=== PATIENT | female | born 1965 | race Caucasian/White ===

== ENCOUNTER 2023-03-15 08:13 | Day surgery (SDC) | payer OTHER ==
[~2023-03-15] VITALS: Ht 162.6 cm; Wt 90.7 kg
[2023-03-15] MEDS ORDERED: OZEMPIC2 MG SC (08:25)
[2023-03-15] MEDS ORDERED: ATORVASTATIN CA40 MG PO (08:26)
[2023-03-15] MEDS ORDERED: AMBIEN10 MG PO (08:27)
[2023-03-15] MEDS ORDERED: COZAAR25 MG PO (08:27)
[2023-03-15] MEDS ORDERED: LYRICA100 MG PO (08:29)
[2023-03-15] MEDS ORDERED: TIZANIDINE2 MG PO (09:12)
[2023-03-15 09:54] VITALS: BP 116/79
== END 2023-03-15 09:40 | disposition home or self-care (01) ==
LOC: ORM 08:13
PROVIDERS: ATTEND Student in an Organized Health Care Education/Training Program
DX: M54.9 Dorsalgia, unspecified (principal); G89.4 Chronic pain syndrome; M62.838 Other muscle spasm

== ENCOUNTER 2023-10-04 08:23 | Day surgery (SDC) | payer MEDICAID ==
[~2023-10-04] VITALS: Ht 162.6 cm; Wt 98.0 kg
[~2023-10-04 08:23] MED LIST: AMBIEN10 MG PO; ATORVASTATIN CA40 MG PO; COZAAR25 MG PO; LYRICA100 MG PO; METFORMIN500 M2 PO; OZEMPIC2 MG SC; TIZANIDINE2 MG PO
[2023-10-04] MEDS ORDERED: SODIUM CHLORIDE 0.9% 10 ML SYR ONE ×2 (08:26→09:09)
[2023-10-04] MEDS ORDERED: BUPIVACAINE HCL PF 0.5 % 50 MG/10 ML SDV ONE (08:46)
[2023-10-04] MEDS ORDERED: LIDOCAINE HCL 1% (10MG/ML) 100 MG/10 ML MDV ONE (08:46)
[2023-10-04] MEDS ORDERED: MIDAZOLAM HCL 2 MG/2 ML VIAL ONE (09:09)
[2023-10-04 12:15] VITALS: BP 119/73
== END 2023-10-04 09:43 | disposition home or self-care (01) ==
LOC: ORM 08:23
PROVIDERS: ATTEND Student in an Organized Health Care Education/Training Program
DX: M47.816 Spondylosis without myelopathy or radiculopathy, lumbar region (principal); G89.4 Chronic pain syndrome; M62.838 Other muscle spasm; M54.9 Dorsalgia, unspecified

== ENCOUNTER → 2023-11-08 | Day surgery (SDC) | payer MEDICAID ==
[~2023-11-08] VITALS: Ht 162.6 cm; Wt 96.6 kg
[~2023-11-08] MED LIST changes: +LIDOCAINE HCL 1% (10MG/ML) 100 MG/10 ML MDV ONE; +MIDAZOLAM HCL 2 MG/2 ML VIAL ONE; +SODIUM CHLORIDE 0.9% 10 ML SYR ONE
[2023-11-08 09:55] VITALS: BP 115/66
== END ==
LOC: ORM 07:48
PROVIDERS: ATTEND Student in an Organized Health Care Education/Training Program
DX: M47.816 Spondylosis without myelopathy or radiculopathy, lumbar region (principal); G89.4 Chronic pain syndrome; M62.838 Other muscle spasm; M54.9 Dorsalgia, unspecified